=== PATIENT | female | born 1960 | race Caucasian/White ===

== ENCOUNTER → 2016-05-20 | Day surgery (SDC) | payer OTHER ==
[~2016-05-20] VITALS: Ht 170.2 cm; Wt 63.5 kg
[~2016-05-20] MED LIST: AMLODIPINE BESYL5 M1 PO; ASPIRIN EC81 M1 PO; FIORICET 50-301 EACH PO; GLUCOPHAGE1000 M1 PO; PEPCID20 M1 PO; SPIRONOLACTONE50 M1 PO; ZOCOR20 M1 PO
--- NOTE | 2016-05-20 15:05 | Operative Report ---
Operative/Inv Procedure Report Surgery Date: 05/20/16 Name of Procedure: Left partial mastectomy with wire localization and sentinel lymph node biopsy Pre-Operative Diagnosis: Left breast cancer, clinical stage I Post-Operative Diagnosis: Same Estimated Blood Loss: less than 50ml Surgeon/Scoreboard Operator: ANNAMARIE VALDEZ MD Anesthesia: laryngeal mask airway Specimens: Left sentinel lymph node, left lumpectomy, cranial margin, caudal margin, medial margin, lateral margin, deep margin Operative/Procedure Note Note: Patient brought to the operating room and 05/20/2016 after preoperative wire localization and lymphoscintigraphy were performed and those films reviewed. She is brought and given laryngeal mask airway anesthesia. 2 g of Ancef was given, and the left breast was prepped and draped in a sterile fashion using ChloraPrep 3 mL of methylene blue diluted with 2 mL saline was injected in the retroareolar fashion. Local anesthesia 1% lidocaine exception percent Marcaine was given and incision was made in the lower axilla. Subcutaneous tissue and clavipectoral fascia were dissected. The axilla was entered. There was a single hot node identified and excised. There were no other hot, blue, or palpable lymph nodes identified and the axilla. This lymph node was sent as sentinel lymph node. Hemostasis was adequate, the deep tissue was approximated using interrupted Vicryl sutures, and the skin was closed using a running subcuticular stitch. The breast was then approached. A curvilinear incision was made after giving local anesthesia. The wire was brought into the specimen and the area of concern was grasped using Allis clamp. The tissue was excised and marked for orientation using margin map. Intraoperative x-ray confirmed the presence of the clip in the specimen. Additional margins were taken in the cranial, caudal, medial, lateral, and deep positions. Hemostasis was adequate. A 2 x 2 BioSorb Marker was placed in the lumpectomy bed and passed into the adjacent breast tissue with Maxon sutures. Subcutaneous tissue was approximated over the Marker. Given was closed in running I sent subcuticular stitch. Sterile strips and sterile dressings were applied and patient transferred to the recovery room in satisfactory condition having tolerated the procedure well.
--- NOTE | 2016-05-20 16:45 | MAMMOGRAPHY REPORT ---
EXAMINATION: MM PREOPERATIVE LOCALIZATION BREAST, LEFT CLINICAL INFORMATION: A 56-year-old female with invasive ductal carcinoma, and ductal carcinoma in situ, at 3 o'clock, diagnosed on stereotactic guided biopsy done on 04/20/2016. Preoperative needle localization is requested. TECHNIQUE: After the details of the procedure, as well as the risks, benefits and alternatives to the procedure, were explained to the patient in detail, and all of her questions were answered, preoperative needle localization was performed. Mammographic imaging of the left breast in the LM projection confirms the presence of a tissue marker (crystal-shaped metallic clip) at the site of the prior stereotactic-guided biopsy at 3 o'clock at middle depth. The skin of the left breast was then cleansed with sterile solution. Using mammographic guidance, aseptic technique and 2% 10 mL lidocaine for local anesthesia, a 5 cm MIG [place] needle-wire system was advanced into the breast from a lateral approach. Orthogonal views were then obtained. Final adjustments of the needle tip position were made, and the wire deployed. The needle was taken out. The patient tolerated the procedure well, and was discharged from the department of radiology in good stable condition. The images were appropriately labelled. A worksheet was appropriately filled out and was sent with the patient to the OR. IMPRESSION: Successful mammographically-guided preoperative needle localization of the biopsy-proven invasive ductal carcinoma, and ductal carcinoma in situ of the left breast at 3 o'clock, at middle depth. EXAMINATION: MM NEEDLE LOCALIZATION SPECIMEN FROM BREAST, LEFT. TECHNIQUE: Single radiograph of the excised breast tissue is performed. FINDINGS: The specimen shows the hook wire is delivered intact. The biopsy clip marker is also identified in the specimen. IMPRESSION: Successful needle localization of the biopsy-proven invasive ductal carcinoma, and ductal carcinoma in situ at 3 o'clock within the left breast. Results were called to Dr. Degroot in the operating room at the time of imaging. The histology report is pending.
== END ==
LOC: STS 01:52 → CBW.IIU 09:00 → STS 09:00 → CBW.MAMMO 09:30
DX: C50.412 Malignant neoplasm of upper-outer quadrant of left female breast (principal); Z17.0 Estrogen receptor positive status [ER+]; E04.9 Nontoxic goiter, unspecified; I10 Essential (primary) hypertension; E11.9 Type 2 diabetes mellitus without complications; Z79.84 Long term (current) use of oral hypoglycemic drugs; E78.2 Mixed hyperlipidemia
CPT/HCPCS: 88305; 88307; A9520; C9728; J0690; J2001; J2250

== ENCOUNTER 2016-05-24 14:44 | Emergency (ER) | payer OTHER ==
[~2016-05-24] VITALS: Ht 170.2 cm; Wt 63.5 kg
--- NOTE | 2016-05-24 17:15 | ED GI/GU/ABDOMINAL COMPLAINT ---
History of Present Illness General Chief Complaint: General Adult Stated Complaint: I THINK I HAVE A KIDNEY STONE Source: patient, family, old records Exam Limitations: no limitations Vital Signs & Intake/Output Vital Signs & Intake/Output Vital Signs Date Time Temp Pulse Resp B/P Pulse O2 O2 Flow FiO2 Ox Delivery Rate 05/24 1740 97.2 84 16 132/86 98 Room Air 05/24 1645 Room Air 05/24 1448 96.4 102 18 142/83 99 Room Air Allergies Coded Allergies: iodine (05/17/16) Reconcile Medications Amlodipine Besylate 5 MG TABLET 1 TAB PO DAILY BP (Reported) Aspirin (Ecotrin*) 81 MG TABLET.DR 1 TAB PO DAILY HEART/BLOOD (Reported) Butalb/Acetaminophen/Caffeine (Fioricet 50-300-40 MG Capsule) 50 MG-300 MG-40 MG CAPSULE 1 CAP PO PRN VARELA/MIGRAINES (Reported) Famotidine (Pepcid) 20 MG TABLET 1 TAB PO DAILY GERD (Reported) Metformin HCl (Glucophage) 1,000 MG TABLET 1 TAB PO BID DM (Reported) Simvastatin (Zocor*) 20 MG TABLET 1 TAB PO DAILY CHOLESTEROL (Reported) Spironolactone 50 MG TABLET 1 TAB PO DAILY BP (Reported) Triage Note: 56 Y/O FEMALE C/O LOWER ABDOMINAL PAIN AND HEMATURIA; STATES "I THINK I HAVE KIDNEY STONES". STATES SHE KNOWS SHE HAS A 5MM STONE IN KIDNEY AND UNSURE IF IT IS NOW PASSING. DENIES N/V/D. Triage Nurses Notes Reviewed? yes LMP (ages 10-50): post menopausal ? n Is pt currently ? No Onset: Morning Duration: hour(s):, gone now, waxing and waning Timing: recent history Quality/Severity: aching, moderate Location: suprapubic Radiation: no radiation Activities at Onset: none Prior Abdominal Problems: similar symptoms Past Sexual History: Unobtainable at this time No Modifying Factors: none Associated Symptoms: abdominal pain, lower back pain, urinary frequency HPI: Several days prior to admission patient complains of suprapubic discomfort frequent urination small amounts with blood. She denies fever chills nausea vomiting diarrhea has been cough shortness of breath headache dysuria rash. Past History Travel History Traveled to [place] past 21 day No Medical History Any Pertinent Medical History? see below for history Neurological: NONE EENT: NONE Cardiovascular: NONE Respiratory: NONE Gastrointestinal: NONE Hepatic: NONE Renal: NONE Musculoskeletal: NONE Psychiatric: NONE Endocrine: NONE Blood Disorders: NONE Cancer(s): breast cancer Surgical History Surgical History: non-contributory Psychosocial History Who do you live with Family What is your primary language Frisian Tobacco Use: Never used Family History Hx Contributory? No Review of Systems Review of Systems Constitutional: Reports: no symptoms. EENTM: Reports: no symptoms. Respiratory: Reports: no symptoms. Cardiovascular: Reports: no symptoms. GI: Reports: no symptoms. Genitourinary: Reports: see HPI, frequency, hematuria. Musculoskeletal: Reports: no symptoms. Skin: Reports: no symptoms. Neurological/Psychological: Reports: no symptoms. Hematologic/Endocrine: Reports: no symptoms. Immunologic/Allergic: Reports: no symptoms. All Other Systems: Reviewed and Negative Physical Exam Physical Exam General Appearance: well developed/nourished, alert, awake, anxious Head: atraumatic, normal appearance Eyes: Bilateral: normal appearance, PERRL, EOMI, normal inspection. Ears, Nose, Throat, Mouth: hearing grossly normal, moist mucous membrane Neck: normal inspection, supple, full range of motion, normal alignment Respiratory: normal breath sounds, chest non-tender, no respiratory distress, quiet respiration, lungs clear Cardiovascular: regular rate/rhythm, normal peripheral pulses, norml femoral pulses equa Peripheral Pulses: 4+ carotid (R), 4+ carotid (L) Gastrointestinal: normal bowel sounds, soft, non-tender, no organomegaly Back: normal inspection, normal range of motion Extremities: normal range of motion, no ligament instability Neurologic/Psych: no motor/sensory deficits, awake, alert, oriented x 3, normal gait, normal mood/affect Skin: intact, normal color, warm/dry Core Measures ACS in differential dx? No Severe Sepsis Present: No Septic Shock Present: No Progress Differential Diagnosis: kidney stone, UTI/pyelo Plan of Care: Orders Procedure Date/time Status MAGNESIUM 05/24 1710 Complete COMPREHENSIVE METABOLIC PANEL 05/24 1710 Complete CBC WITHOUT DIFFERENTIAL 05/24 171 Complete URINALYSIS 05/24 1448 Complete Laboratory Tests 05/24/16 1725: Anion Gap 10, Estimated GFR > 60, BUN/Creatinine Ratio 21.3, Glucose 101 H, Calcium 10.2, Magnesium 1.8, Total Bilirubin 0.5, AST 23, ALT 35, Alkaline Phosphatase 85, Total Protein 7.2, Albumin 4.6, Globulin 2.6, Albumin/Globulin Ratio 1.8, CBC w Diff NO MAN DIFF REQ, RBC 4.52, MCV 92.1, MCH 30.8, RDW 13.0, MPV 7.9, Gran % 53.1, Lymphocytes % 33.1, Monocytes % 8.3, Eosinophils % 4.3, Basophils % 1.2, Absolute Granulocytes 4.3, Absolute Lymphocytes 2.7, Absolute Monocytes 0.7 H, Absolute Eosinophils 0.3, Absolute Basophils 0.1, PUBS MCHC 33.5 05/24/16 1455: Urine Color YEL, Urine Clarity HAZY H, Urine pH 6.0, Ur Specific [place] <= 1.005, Urine Protein TRACE H, Urine Ketones NEG, Urine Nitrite NEG, Urine Bilirubin NEG, Urine Urobilinogen 0.2, Ur Leukocyte Esterase TRACE H, Ur Microscopic SEDIMENT EXAMINED, Urine RBC 1-3, Urine WBC 1-3 H, Ur Epithelial Cells FEW, Urine Hemoglobin LARGE H, Urine Glucose NEG Diagnostic Imaging: Viewed by Me: CT Scan. Discussed w/RAD: CT Scan. Radiology Impression: No acute findings within the abdomen or pelvis to explain patient symptomatology. Nephrolithiasis of the left kidney, as described above, with several subcentimeter nonobstructing stones identified within the upper and lower poles of the left kidney. No ureteral stones and no hydroureteronephrosis of either kidney or renal collecting system. Initial ED EKG: none Departure Departure Time of Disposition: 1827 Disposition: HOME OR SELF CARE Condition: Stable Clinical Impression Primary Impression: Renal colic Secondary Impressions: Microscopic hematuria Referrals: PAULETTE SWARTZ MD Call for urology follow up ANUM FARLEY MD (PCP/Family) Departure Forms: Customer Survey General Discharge Information
[2016-05-24 17:30] LABS: ABSOLUTE BASOPHIL COUNT 0.1 /CUMM (0.0-0.2); ABSOLUTE EOSINOPHIL COUNT 0.3 /CUMM (0.0-0.7); ABSOLUTE GRANULOCYTE CT 4.3 /CUMM (1.4-6.5); ABSOLUTE LYMPH COUNT 2.7 /CUMM (1.2-3.4); ABSOLUTE MONOCYTE COUNT 0.7 /CUMM (0.10-0.60); BASOPHIL % 1.2 % (0.0-2.0); EOSINOPHIL % 4.3 % (0-5); GRANULOCYTE % 53.1 % (42.2-75.2); HEMATOCRIT 41.6 % (37-47); MEAN CORPUSCULAR HGB 30.8 PG (27.0-31.0); MEAN CORPUSCULAR HGB CONC 33.5 G/DL (33.0-37.0); MEAN CORPUSCULAR VOLUME 92.1 FL (81.0-99.0); MEAN PLATELET VOLUME 7.9 FL (7.4-10.4); PLATELET COUNT 291 /CUMM (130-400); RED BLOOD CELL CT 4.52 /CUMM (4.20-5.40); WHITE BLOOD CELL COUNT 8.1 /CUMM (4.8-10.8)
--- NOTE | 2016-05-24 17:52 | CT SCAN REPORT ---
EXAMINATION: CT ABDOMEN AND PELVIS WITHOUT CONTRAST CLINICAL INFORMATION: Flank and suprapubic pain with hematuria. History of breast cancer. COMPARISON: CT abdomen and pelvis without contrast 03/18/2014. TECHNIQUE: Multidetector volumetric imaging was performed from the superior aspect of the liver through the pubic symphysis. Sagittal and coronal reformatted images were obtained on the technologist's workstation. DLP: 280 mGy-cm. FINDINGS: Limited evaluation of the solid abdominal viscera in the absence of intravenous contrast. LUNG BASES: The visualized lung bases are unremarkable. LIVER, GALLBLADDER, AND BILIARY TREE: The liver is normal in size, shape, and attenuation. No focal hepatic lesion or biliary ductal dilatation is present. The gallbladder is surgically absent. PANCREAS: Unremarkable. SPLEEN: Unremarkable. ADRENAL GLANDS: Unremarkable. KIDNEYS AND URETERS: Evaluation of the bilateral kidneys is notable for nephrolithiasis of the left kidney. There are several nonobstructing stones within the upper and lower poles of left kidney, visualized measuring up to 7 mm within the upper pole of the left kidney. There are additional nonobstructing stones within the upper pole of the left kidney measuring 3 mm and 5 mm. Within the lower pole of the left kidney a 5 mm nonobstructing stone is identified. There is no appreciable nephrolithiasis of the right kidney. A rodlike calcification within the renal hilum corresponds to a vascular calcification. No ureteral stones are identified and there is no hydroureteronephrosis of either kidney or renal collecting system. BLADDER: Unremarkable. GASTROINTESTINAL TRACT: Normal anatomic orientation of the stomach relative to the duodenum. Normal caliber of abdominal and pelvic bowel loops, without evidence of obstruction or ileus. No circumferential bowel wall thickening with surrounding inflammatory changes to suggest an underlying infectious or inflammatory enterocolitis. Normal-appearing appendix within the right lower quadrant of the abdomen. No organizing intra-abdominal fluid collections or free intraperitoneal air. ABDOMINAL WALL: No significant hernia is appreciated. LYMPH NODES: No significant abdominal or pelvic adenopathy. VASCULAR: Scattered atherosclerosis of the abdominal aorta and its branching vessels. Normal course and caliber of the abdominal aorta and its branching vessels, without aneurysmal dilatation. Limited evaluation for vascular patency in the absence of intravenous contrast. PELVIC VISCERA: Unremarkable. OSSEOUS STRUCTURES: No acute osseous abnormality. Moderate degenerative changes at the lumbosacral junction. No acute vertebral compression deformities of the imaged thoracolumbar spine. No visible destructive osseous lesions. IMPRESSION: No acute findings within the abdomen or pelvis to explain patient symptomatology. Nephrolithiasis of the left kidney, as described above, with several subcentimeter nonobstructing stones identified within the upper and lower poles of the left kidney. No ureteral stones and no hydroureteronephrosis of either kidney or renal collecting system.
[2016-05-24 18:56] VITALS: BP 132/84
== END 2016-05-24 19:20 ==
LOC: ERH 14:44
PROVIDERS: Emergency Medicine
DX: N23 Unspecified renal colic (principal); R31.29 Other microscopic hematuria; M54.5 Low back pain; R35.0 Frequency of micturition
CPT/HCPCS: 74176; 81001

== ENCOUNTER → 2016-06-07 | Day surgery (SDC) | payer OTHER ==
[~2016-06-07] VITALS: Ht 170.2 cm; Wt 63.5 kg
--- NOTE | 2016-06-07 14:01 | Operative Report ---
Operative/Inv Procedure Report Surgery Date: 06/07/16 Name of Procedure: right renal ESWL/Fluoroscopy Pre-Operative Diagnosis: bilateral stones, and bilateral renal colic Post-Operative Diagnosis: same Estimated Blood Loss: scant Surgeon/Loan Counselor: ALEXANDRO CHARLES MD Anesthesia: moderate sedation Complications: none Operative/Procedure Note Note: The patient was taken to the operating room and placed on the ESWL table in supine position. The patient's right flank was positioned over the table cut- out overlying the dome of the treatment head. Timeout was performed, with the patient awake, in order to confirm the correct identity, side, anesthesia, procedure and other pertinent david-operative information. The patient was then anesthesized. Once the patient was adequately sedated, fluoroscopy, as well as Renal ultrasound was used to locate the right renal stone. Renal US was used to confirm the placement of the stone, and measured it to be approximately 6 mm in size at the right renal pelvis/UPJ area. Additionally, renal U/S revealed no hydronephrosis, and no solid tumor. With the stone's position optimized, using AP and oblique fluoroscopy views, the right renal E.S.W.L. was initiated at low energy level. After noting the patient's tolerance to the shockwaves, the intensitiy was ramped up to maximum level. At the end of the procedure, the composition of the right renal stone had changed significantly, indicating the shattering of the renal stone. Of note, a total of 2500 shockwaves were delivered to the stones. The patient tolerated the ESWL procedure well, was awakened, then taken to recovery in satisfactory condition via stretcher. The patient was dischared home with pain medications, diet orders, and intructions to catch fragments by straining the urine. The patient to to have follow-up renal ultrasound and KUB in 1 to 2 weeks, prior to follow-up visit in my office. Findings: 6mm right UPJ stone Discharge Disposition: Same Day Admissions CC: ALEXANDRO CHARLES MD
== END ==
LOC: STS 03:14
DX: N20.0 Calculus of kidney (principal); C50.912 Malignant neoplasm of unspecified site of left female breast; I10 Essential (primary) hypertension; E78.00 Pure hypercholesterolemia, unspecified
CPT/HCPCS: J2250